=== PATIENT | male | born 1970 | race Caucasian/White ===

== ENCOUNTER 2024-07-19 18:20 | Inpatient (IN) | payer OTHER ==
[~2024-07-19] VITALS: Ht 175.3 cm; Wt 81.6 kg
[2024-07-19] MEDS ORDERED: ONDANSETRON ODT 4 MG TAB.RAPDIS ONE (19:08)
[2024-07-19] MEDS ORDERED: HYDROMORPHONE 2 MG/1 ML DISP.SYRIN ONE ×2 (19:09→20:30)
[2024-07-19] MEDS: ONDANSETRON ODT 4 MG TAB.RAPDIS SL ONE (19:12)
[2024-07-19] MEDS: HYDROMORPHONE 1 MG/1 ML DISP.SYRIN IM ONE ×2 (19:12→20:32)
[2024-07-19] MEDS ORDERED: LORAZEPAM 1 MG TABLET ONE (19:43)
[2024-07-19] MEDS: LORAZEPAM 0.5 MG TABLET PO ONE (19:46)
[2024-07-19 22:08] LABS: BASOPHILS # (AUTO) 0.1 K/UL (0.0-0.2); BASOPHILS % (AUTO) 0.7 % (0.0-2.0); DIFFERENTIAL COMMENT 0; EOSINOPHILS # (AUTO) 0.1 K/uL (0.0-0.7); EOSINOPHILS % (AUTO) 0.8 % (0.0-7.0); HEMATOCRIT 42.6 % (36.7-47.1); HEMOGLOBIN 14.8 g/dL (12.5-16.3); LYMPHOCYTES # (AUTO) 2.5 K/uL (0.8-4.8); LYMPHOCYTES % (AUTO) 29.9 % (20.5-51.5); MEAN CORPUSCULAR HEMOGLOBIN 35.2 uug (23.8-33.4); MEAN CORPUSCULAR HGB CONC 35 g/dL (32.5-36.3); MEAN CORPUSCULAR VOLUME 101.6 fL (73.0-96.2); MONOCYTES # (AUTO) 0.8 K/uL (0.1-1.30); MONOCYTES % (AUTO) 9.6 % (0.0-11.0); NEUTROPHILS # (AUTO) 4.9 K/uL (1.8-8.9); PLATELET COUNT (AUTO) 200 K/uL (152-348); WHITE BLOOD COUNT (AUTO) 8.2 K/uL (3.6-10.2)
[2024-07-19] MEDS ORDERED: CYCL10TA9 PO (22:10)
[2024-07-19] MEDS ORDERED: AMLO10TA59 PO (22:10)
[2024-07-19] MEDS ORDERED: VENL75TA4 PO (22:10)
[2024-07-19 22:18] LABS: CALCIUM 9.2 mg/dL (8.5-10.1); CARBON DIOXIDE 27 mmol/L (21-32); CHLORIDE 103 mmol/L (98-107); CREATININE 0.7 mg/dL (0.6-1.3); GLUCOSE 102 mg/dL (74-106); POTASSIUM 3.8 mmol/L (3.5-5.1); SODIUM SERUM 140 mmol/L (136-145); UREA NITROGEN, BLOOD 13 mg/dL (7-18)
[2024-07-19] MEDS: IV NORMAL SALINE 1000 ML BAG IV ONE (22:24)
[2024-07-19 22:31] LABS: ALANINE AMINOTRANSFERASE 41 U/L (16-63); ALBUMIN 3.6 g/dL (3.4-5.0); ALKALINE PHOSPHATASE 87 U/L (50-136); ASPARTATE AMINOTRANSFERASE 23 U/L (15-37); BILIRUBIN,DIRECT 0.1 mg/dL (0.0-0.2); BILIRUBIN,TOTAL 0.4 mg/dL (0.2-1.0); TOTAL PROTEIN, SERUM 7.2 g/dL (6.4-8.2)
[2024-07-19] MEDS ORDERED: HYDROMORPHONE 1 MG/1 ML DISP.SYRIN ONE (23:29)
[2024-07-19] MEDS: HYDROMORPHONE 1 MG/1 ML DISP.SYRIN IV ONE (23:32)
[2024-07-20] MEDS ORDERED: MAGNESIUM HYDROXIDE 30 ML LIQUID UDC PO PRN (00:30)
[2024-07-20] MEDS ORDERED: ACETAMINOPHEN 325 MG TABLET PO PRN (00:30)
[2024-07-20] MEDS ORDERED: ONDANSETRON 4 MG/2 ML VIAL IV PRN (00:30)
[2024-07-20] MEDS: GABAPENTIN 100 MG CAPSULE PO SCH (01:32)
[2024-07-20] MEDS: HYDROMORPHONE 1 MG/1 ML DISP.SYRIN IV PRN ×2 (01:33→14:32)
[2024-07-20] MEDS: HYDROCODONE/APAP 10-325 MG TABLET PO PRN (02:40)
[2024-07-20 07:53] VITALS: BP 111/68; TEMP 97.6; O2SAT 98
[2024-07-20] MEDS: ENOXAPARIN SODIUM 40 MG/0.4 ML DISP.SYRIN SQ SCH (09:29)
[2024-07-20] MEDS ORDERED: LIDO700A30 TP (11:30)
[2024-07-20] MEDS ORDERED: HYDR-3980 PO (11:30)
[2024-07-20] MEDS ORDERED: TRAZ150T75 PO (11:31)
[2024-07-20] MEDS ORDERED: VENL75CA62 PO (11:32)
[2024-07-20] MEDS ORDERED: HYDR12.55 PO (11:32)
[2024-07-20] MEDS ORDERED: FOLI1TAB94 PO (11:33)
[2024-07-20] MEDS ORDERED: VITA-287 PO (11:34)
[2024-07-20 11:50] VITALS: BP 113/72; TEMP 98; O2SAT 98
[2024-07-20] MEDS ORDERED: IBUPROFEN 400 MG TABLET PO PRN (14:00)
[2024-07-20] MEDS: LIDOCAINE 5% PATCH TD SCH (14:12)
[2024-07-20 14:24] VITALS: BP 115/75; TEMP 98.1; O2SAT 98
[2024-07-20 15:58] VITALS: BP 126/88; TEMP 97.9; O2SAT 98
[2024-07-20 17:36] VITALS: BP 133/88; O2SAT 100
[2024-07-20 19:17] VITALS: BP 116/68; TEMP 98.6; O2SAT 97
[2024-07-20] MEDS: TRAZODONE 100 MG TABLET PO SCH (20:33)
[2024-07-20] MEDS ORDERED: Medication Not On Formulary EA (Trazodone Hcl (Desyrel) 1 TAB) PO SCH (21:00)
[2024-07-21 06:35] VITALS: BP 119/98; TEMP 98.2; O2SAT 100
[2024-07-21 07:07] LABS: BASOPHILS # (AUTO) 0.1 K/UL (0.0-0.2); BASOPHILS % (AUTO) 1.1 % (0.0-2.0); EOSINOPHILS # (AUTO) 0.1 K/uL (0.0-0.7); EOSINOPHILS % (AUTO) 2.3 % (0.0-7.0); HEMATOCRIT 41.5 % (36.7-47.1); HEMOGLOBIN 14.4 g/dL (12.5-16.3); LYMPHOCYTES # (AUTO) 2.3 K/uL (0.8-4.8); LYMPHOCYTES % (AUTO) 36.7 % (20.5-51.5); MEAN CORPUSCULAR HEMOGLOBIN 35.5 uug (23.8-33.4); MEAN CORPUSCULAR HGB CONC 35 g/dL (32.5-36.3); MEAN CORPUSCULAR VOLUME 102.4 fL (73.0-96.2); MONOCYTES # (AUTO) 0.6 K/uL (0.1-1.30); MONOCYTES % (AUTO) 9.2 % (0.0-11.0); NEUTROPHILS # (AUTO) 3.2 K/uL (1.8-8.9); NEUTROPHILS % (AUTO) 50.7 % (38.5-71.5); PLATELET COUNT (AUTO) 180 K/uL (152-348); RED BLOOD CELL COUNT(AUTO) 4.05 MIL/uL (4.06-5.63); RED CELL DISTRIBUTION WIDTH 13.2 % (12.1-16.2); WHITE BLOOD COUNT (AUTO) 6.2 K/uL (3.6-10.2)
[2024-07-21 07:17] LABS: ALANINE AMINOTRANSFERASE 33 U/L (16-63); ALBUMIN 3.2 g/dL (3.4-5.0); ALKALINE PHOSPHATASE 83 U/L (50-136); ASPARTATE AMINOTRANSFERASE 27 U/L (15-37); BILIRUBIN,TOTAL 0.4 mg/dL (0.2-1.0); CALCIUM 8.8 mg/dL (8.5-10.1); CARBON DIOXIDE 25 mmol/L (21-32); CHLORIDE 105 mmol/L (98-107); CREATINE KINASE, TOTAL 69 U/L (39-308); CREATININE 0.6 mg/dL (0.6-1.3); GLUCOSE 102 mg/dL (74-106); MAGNESIUM 2.1 mg/dL (1.8-2.4); PHOSPHOROUS 3.1 mg/dL (2.5-4.9); POTASSIUM 4.2 mmol/L (3.5-5.1); SODIUM SERUM 138 mmol/L (136-145); TOTAL PROTEIN, SERUM 6.7 g/dL (6.4-8.2); UREA NITROGEN, BLOOD 13 mg/dL (7-18)
[2024-07-21 07:22] LABS: DIFFERENTIAL COMMENT 1
[2024-07-21] MEDS: FOLIC ACID 1 MG TABLET PO SCH (08:50)
[2024-07-21] MEDS: VENLAFAXINE XR 75 MG TAB.ER.24H PO SCH (08:50)
[2024-07-21] MEDS: AMLODIPINE 10 MG TABLET PO SCH (08:50)
[2024-07-21] MEDS: VITAMIN B COMPLEX 1 TABLET PO SCH (08:51)
[2024-07-21 11:35] VITALS: BP 108/67; TEMP 98.3; O2SAT 98
[2024-07-21] MEDS ORDERED: HYDR-3972 PO (12:07)
[2024-07-21 16:00] VITALS: BP 122/78; TEMP 98.8; O2SAT 99
[2024-07-21 19:00] VITALS: BP 111/73; TEMP 98.4; O2SAT 98
[2024-07-22] MEDS: CYCLOBENZAPRINE HCL 10 MG TABLET PO PRN (02:14)
[2024-07-22 04:00] VITALS: BP 116/81; TEMP 97.9; O2SAT 99
[2024-07-22 07:55] VITALS: BP 106/70; TEMP 98.1; O2SAT 97
[2024-07-22 07:59] VITALS: BP 115/70
== END 2024-07-22 08:40 | disposition home or self-care (01) | DRG 135 ==
LOC: ER 20:33 → MEDSURG3 07-20 00:10
PROVIDERS: ADMIT Nurse Practitioner Family; ATTEND Internal Medicine
DX: S22.42XA Multiple fractures of ribs, left side, initial encounter for closed fracture (principal); E66.9 Obesity, unspecified; G89.11 Acute pain due to trauma; F17.210 Nicotine dependence, cigarettes, uncomplicated; Z18.10 Retained metal fragments, unspecified; J43.9 Emphysema, unspecified; G89.4 Chronic pain syndrome; Z79.891 Long term (current) use of opiate analgesic; Z68.26 Body mass index [BMI] 26.0-26.9, adult; F41.9 Anxiety disorder, unspecified; L90.5 Scar conditions and fibrosis of skin; Z87.828 Personal history of other (healed) physical injury and trauma; Z98.890 Other specified postprocedural states; S20.212A Contusion of left front wall of thorax, initial encounter; W22.09XA Striking against other stationary object, initial encounter; Y93.39 Activity, other involving climbing, rappelling and jumping off; Y92.031 Bathroom in apartment as the place of occurrence of the external cause; K43.9 Ventral hernia without obstruction or gangrene; Z79.899 Other long term (current) drug therapy
CPT/HCPCS: 36415; 71045; 71250; 74018; 83735; 84100; 84484; 85025; 85730; G0378; J1171; J1650; J7040; Q0162

== ENCOUNTER 2024-10-19 18:09 | Emergency (ER) | payer OTHER ==
[~2024-10-19] VITALS: Ht 175.3 cm; Wt 81.6 kg
[~2024-10-19 18:09] MED LIST: AMLO10TA59 PO; CYCL10TA9 PO; FOLI1TAB94 PO; HYDR-3972 PO; HYDR-3980 PO; HYDR12.55 PO; LIDO700A30 TP; TRAZ150T75 PO; VENL75CA62 PO; VITA-287 PO
[2024-10-19 18:47] LABS: PLATELET COUNT (AUTO) 192 K/uL (152-348); RED BLOOD CELL COUNT(AUTO) 4.08 MIL/uL (4.06-5.63); RED CELL DISTRIBUTION WIDTH 13.4 % (12.1-16.2); WHITE BLOOD COUNT (AUTO) 10.3 K/uL (3.6-10.2)
[2024-10-19 18:55] LABS: CREATININE 1.0 mg/dL (0.6-1.3); SODIUM SERUM 137 mmol/L (136-145); UREA NITROGEN, BLOOD 18 mg/dL (7-18)
[2024-10-19 19:00] LABS: ASPARTATE AMINOTRANSFERASE 24 U/L (15-37); TOTAL PROTEIN, SERUM 7.5 g/dL (6.4-8.2)
[2024-10-19 19:48] LABS: *BILIRUBIN,URIN NEGATIVE (NEGATIVE); *BLOOD, URINE NEGATIVE (NEGATIVE); *CLARITY,URINE CLEAR (CLEAR); *COLOR,URINE YELLOW (YELLOW); *KETONES,URINE NEGATIVE (NEGATIVE); *PROTEIN,URINE NEGATIVE (NEGATIVE); *UROBILINOGEN,URINE 0.2 E.U./dl (NORMAL); LEUKOCYTE ESTERASE ,URINE NEGATIVE (NEGATIVE); NITRITE, URINE NEGATIVE (NEGATIVE); UGLUCOSE NEGATIVE (NEGATIVE)
[2024-10-19] MEDS: IV NORMAL SALINE 1000 ML BAG IV ONE (19:50)
[2024-10-19] MEDS: HYDROMORPHONE 1 MG/1 ML DISP.SYRIN IV ONE (19:50)
[2024-10-19] MEDS: ONDANSETRON 4 MG/2 ML VIAL IV ONE (19:50)
[2024-10-19] MEDS ORDERED: OXYC-133 PO (21:35)
[2024-10-19] MEDS ORDERED: OXYCODONE/APAP 5-325 MG TABLET ONE (21:50)
[2024-10-19] MEDS: OXYCODONE/APAP 5-325 MG TABLET PO ONE (21:55)
[2024-10-19 22:26] VITALS: BP 122/72; O2SAT 99
[2024-10-20] MEDS ORDERED: OXYC-128 PO (09:12)
== END 2024-10-19 22:19 | disposition home or self-care (01) ==
LOC: ER 18:18
DX: R10.9 Unspecified abdominal pain (principal); R11.10 Vomiting, unspecified; K59.00 Constipation, unspecified; F17.200 Nicotine dependence, unspecified, uncomplicated; F41.9 Anxiety disorder, unspecified; Z79.899 Other long term (current) drug therapy; Z86.59 Personal history of other mental and behavioral disorders; Z60.2 Problems related to living alone
CPT/HCPCS: 99285; 74176; 96374; 96361; 96375; 80076; 80048; 81003; 83690; 85025; 36415; J2405; J1171; J7040; A4606; A4663

== ENCOUNTER 2024-11-20 20:33 | Emergency (ER) | payer OTHER ==
[~2024-11-20] VITALS: Ht 175.3 cm; Wt 83.9 kg
[~2024-11-20 20:33] MED LIST changes: +OXYC-128 PO; +OXYC-133 PO
[2024-11-20 21:14] VITALS: TEMP 97.5
[2024-11-20] MEDS: ACETAMINOPHEN 500 MG TABLET PO ONE (21:14)
[2024-11-20] MEDS ORDERED: ACETAMINOPHEN 500 MG TABLET ONE (21:14)
[2024-11-20 21:27] LABS: *BILIRUBIN,URIN NEGATIVE (NEGATIVE); *BLOOD, URINE NEGATIVE (NEGATIVE); *CLARITY,URINE CLEAR (CLEAR); *COLOR,URINE YELLOW (YELLOW); *KETONES,URINE NEGATIVE (NEGATIVE); *PROTEIN,URINE NEGATIVE (NEGATIVE); *UROBILINOGEN,URINE 0.2 E.U./dl (NORMAL); LEUKOCYTE ESTERASE ,URINE NEGATIVE (NEGATIVE); NITRITE, URINE NEGATIVE (NEGATIVE); UGLUCOSE NEGATIVE (NEGATIVE)
[2024-11-20] MEDS ORDERED: ALPRAZOLAM 0.5 MG TABLET ONE (21:40)
[2024-11-20 21:41] LABS: PLATELET COUNT (AUTO) 148 K/uL (152-348); RED BLOOD CELL COUNT(AUTO) 3.90 MIL/uL (4.06-5.63); RED CELL DISTRIBUTION WIDTH 14.0 % (12.1-16.2); WHITE BLOOD COUNT (AUTO) 6.5 K/uL (3.6-10.2)
[2024-11-20] MEDS: ALPRAZOLAM 0.25 MG TABLET PO ONE (21:41)
[2024-11-20 21:47] LABS: CREATININE 0.9 mg/dL (0.6-1.3); SODIUM SERUM 139.0 mmol/L (136-145); UREA NITROGEN, BLOOD 14.0 mg/dL (7-18)
[2024-11-20 21:53] LABS: ASPARTATE AMINOTRANSFERASE 22.0 U/L (15-37); TOTAL PROTEIN, SERUM 6.9 g/dL (6.4-8.2)
[2024-11-20 22:07] LABS: ETHANOL < 3 MG/DL (0-10)
[2024-11-20 22:09] LABS: *AMPHETAMINE, URINE NEGATIVE (NEGATIVE); *BARBITURATE, URINE NEGATIVE (NEGATIVE); *BENZODIAZEPINE, URINE NEGATIVE (NEGATIVE); *CANNABINOID, URINE POSITIVE (NEGATIVE); *COCCAINE, URINE NEGATIVE (NEGATIVE); *OPIATE, URINE POSITIVE (NEGATIVE); *PHENCYCLIDINE SCREEN,URINE NEGATIVE (NEGATIVE); FENTANYL, URINE NEGATIVE (NEGATIVE)
[2024-11-20] MEDS ORDERED: CIPR-263 PO (22:57)
[2024-11-20] MEDS ORDERED: HYDR-3980 PO (22:57)
[2024-11-20] MEDS ORDERED: KETOROLAC TROMETHAMINE 30 MG INJ ONE (23:27)
[2024-11-20] MEDS: KETOROLAC TROMETHAMINE 30 MG INJ IM ONE (23:31)
[2024-11-21 00:18] VITALS: BP 124/78
[2024-11-21 00:27] VITALS: BP 124/78; O2SAT 95
== END 2024-11-21 00:29 | disposition home or self-care (01) ==
LOC: ER 20:35
DX: K52.9 Noninfective gastroenteritis and colitis, unspecified (principal); F32.A Depression, unspecified; F43.10 Post-traumatic stress disorder, unspecified; F17.210 Nicotine dependence, cigarettes, uncomplicated; I10 Essential (primary) hypertension; Z79.899 Other long term (current) drug therapy
CPT/HCPCS: 80076; 80048; 81003; 83690; 85025; 36415; 74176; 99285; 96372; 80320; 80307; J1885; A4606; A4663; A9150; G0480

== ENCOUNTER 2025-01-19 20:20 | Emergency (ER) | payer OTHER ==
[~2025-01-19] VITALS: Ht 175.3 cm; Wt 81.6 kg
[~2025-01-19 20:20] MED LIST changes: +CIPR-263 PO
[2025-01-19] MEDS ORDERED: LORAZEPAM 1 MG TABLET ONE ×2 (21:09→23:45)
[2025-01-19] MEDS: LORAZEPAM 0.5 MG TABLET PO ONE ×2 (21:10→23:50)
[2025-01-19 22:36] LABS: *BILIRUBIN,URIN NEGATIVE (NEGATIVE); *BLOOD, URINE NEGATIVE (NEGATIVE); *CLARITY,URINE CLEAR (CLEAR); *COLOR,URINE YELLOW (YELLOW); *KETONES,URINE TRACE (NEGATIVE); *PROTEIN,URINE NEGATIVE (NEGATIVE); *UROBILINOGEN,URINE 0.2 E.U./dl (NORMAL); LEUKOCYTE ESTERASE ,URINE NEGATIVE (NEGATIVE); NITRITE, URINE NEGATIVE (NEGATIVE); UGLUCOSE NEGATIVE (NEGATIVE)
[2025-01-19 22:36] LABS: PLATELET COUNT (AUTO) 165 K/uL (152-348); RED BLOOD CELL COUNT(AUTO) 4.16 MIL/uL (4.06-5.63); RED CELL DISTRIBUTION WIDTH 14.2 % (12.1-16.2); WHITE BLOOD COUNT (AUTO) 7.3 K/uL (3.6-10.2)
[2025-01-19 22:43] LABS: CREATININE 0.8 mg/dL (0.6-1.3); SODIUM SERUM 141.0 mmol/L (136-145); UREA NITROGEN, BLOOD 13.0 mg/dL (7-18)
[2025-01-19 22:48] LABS: ETHANOL 40.0 MG/DL (0-10)
[2025-01-19 22:49] LABS: ASPARTATE AMINOTRANSFERASE 23.0 U/L (15-37); TOTAL PROTEIN, SERUM 7.5 g/dL (6.4-8.2)
[2025-01-19 22:51] LABS: *AMPHETAMINE, URINE NEGATIVE (NEGATIVE); *BARBITURATE, URINE NEGATIVE (NEGATIVE); *BENZODIAZEPINE, URINE NEGATIVE (NEGATIVE); *CANNABINOID, URINE POSITIVE (NEGATIVE); *COCCAINE, URINE NEGATIVE (NEGATIVE); *OPIATE, URINE POSITIVE (NEGATIVE); *PHENCYCLIDINE SCREEN,URINE NEGATIVE (NEGATIVE); FENTANYL, URINE NEGATIVE (NEGATIVE)
[2025-01-19 22:58] LABS: PLATELET ESTIMATE ADEQUATE
[2025-01-19 23:00] LABS: NEUTROPHILS % (MANUAL) 53 % (42-75)
[2025-01-19 23:01] LABS: EOSINOPHILS % (MANUAL) 2 % (0-8); LYMPHOCYTES % (MANUAL) 38 % (20-40); MONOCYTES % (MANUAL) 7 % (2-10)
[2025-01-19 23:03] LABS: SQUAMOUS EPITHELIAL CELL,UR FEW /HPF (NONE SEEN)
[2025-01-20] MEDS ORDERED: LORAZEPAM 0.5 MG TABLET ONE (08:32)
[2025-01-20] MEDS: LORAZEPAM 0.5 MG TABLET PO ONE (08:34)
[2025-01-20 10:55] VITALS: BP 131/89; O2SAT 98
== END 2025-01-20 11:09 | disposition short-term general hospital (02) ==
LOC: ER 20:22
DX: F41.9 Anxiety disorder, unspecified (principal); F32.A Depression, unspecified; F17.210 Nicotine dependence, cigarettes, uncomplicated; Z79.899 Other long term (current) drug therapy; Z88.7 Allergy status to serum and vaccine; Z20.822 Contact with and (suspected) exposure to COVID-19
CPT/HCPCS: 36415; 70030-TC; A4606; A4663; G0480

== ENCOUNTER 2025-02-23 11:48 | Emergency (ER) | payer OTHER ==
[~2025-02-23] VITALS: Ht 175.3 cm; Wt 83.9 kg
[~2025-02-23 11:48] MED LIST changes: +CYCL10TA24 PO; -CYCL10TA9 PO
[2025-02-23 12:16] LABS: PLATELET COUNT (AUTO) 202 K/uL (152-348); RED BLOOD CELL COUNT(AUTO) 4.59 MIL/uL (4.06-5.63); RED CELL DISTRIBUTION WIDTH 14.5 % (12.1-16.2); WHITE BLOOD COUNT (AUTO) 7.4 K/uL (3.6-10.2)
[2025-02-23 12:23] LABS: CREATININE 0.9 mg/dL (0.6-1.3); SODIUM SERUM 142.0 mmol/L (136-145); UREA NITROGEN, BLOOD 12.0 mg/dL (7-18)
[2025-02-23 12:24] LABS: *BILIRUBIN,URIN NEGATIVE (NEGATIVE); *BLOOD, URINE NEGATIVE (NEGATIVE); *CLARITY,URINE CLEAR (CLEAR); *COLOR,URINE YELLOW (YELLOW); *KETONES,URINE NEGATIVE (NEGATIVE); *PROTEIN,URINE NEGATIVE (NEGATIVE); *UROBILINOGEN,URINE 0.2 E.U./dl (NORMAL); LEUKOCYTE ESTERASE ,URINE NEGATIVE (NEGATIVE); NITRITE, URINE NEGATIVE (NEGATIVE); UGLUCOSE NEGATIVE (NEGATIVE)
[2025-02-23 12:28] LABS: ASPARTATE AMINOTRANSFERASE 33.0 U/L (15-37); TOTAL PROTEIN, SERUM 8.4 g/dL (6.4-8.2)
[2025-02-23] MEDS ORDERED: MORPHINE SULFATE 4 MG/1 ML DISP.SYRIN ONE (12:31)
[2025-02-23] MEDS ORDERED: ONDANSETRON 4 MG/2 ML VIAL ONE (12:31)
[2025-02-23] MEDS: IV NORMAL SALINE 1000 ML BAG IV ONE (12:41)
[2025-02-23] MEDS: MORPHINE SULFATE 2 MG/1 ML DISP.SYRIN IV ONE (12:42)
[2025-02-23] MEDS: ONDANSETRON 4 MG/2 ML VIAL IV ONE (12:43)
[2025-02-23] MEDS ORDERED: HYDROMORPHONE 1 MG/1 ML DISP.SYRIN ONE (13:38)
[2025-02-23] MEDS: HYDROMORPHONE 1 MG/1 ML DISP.SYRIN IV ONE (13:42)
[2025-02-23] MEDS ORDERED: POLY17PO4 PO (14:04)
[2025-02-23] MEDS ORDERED: ONDA4TAB5 PO (14:04)
[2025-02-23] MEDS ORDERED: OXYC-133 PO (14:04)
[2025-02-23] MEDS ORDERED: LIDO700A30 TP (14:04)
[2025-02-23 14:10] VITALS: BP 122/67
[2025-02-23] MEDS ORDERED: LIDOCAINE 5% PATCH TD ONE (14:16)
[2025-02-23] MEDS: LIDOCAINE 5% PATCH TD ONE (14:17)
[2025-02-23 14:20] VITALS: BP 122/67; O2SAT 98
[2025-02-23] MEDS ORDERED: NALO4SPR BNOSTRILS (14:24)
== END 2025-02-23 14:21 | disposition home or self-care (01) ==
LOC: ER 11:48
DX: R10.9 Unspecified abdominal pain (principal); R11.2 Nausea with vomiting, unspecified; K59.00 Constipation, unspecified; F17.210 Nicotine dependence, cigarettes, uncomplicated; F32.A Depression, unspecified; F41.9 Anxiety disorder, unspecified; F43.10 Post-traumatic stress disorder, unspecified; G89.4 Chronic pain syndrome; Z79.899 Other long term (current) drug therapy; Z88.7 Allergy status to serum and vaccine; Z90.49 Acquired absence of other specified parts of digestive tract; Z93.3 Colostomy status
CPT/HCPCS: 36415; 83690; 85025; A4606; A4663; J1171; J2270; J2405; J7040